=== PATIENT | female | born 1990 | race Caucasian/White ===

== ENCOUNTER → 2025-09-08 16:20 | Outpatient (CLI) | payer OTHER, SELFPAY ==
[2025-09-08 17:28] LABS: Add Manual Diff / Slide Review NO; Hematocrit 42.3 % (36-46); Hemoglobin 14.8 g/dL (12.0-16.0); Lymphocytes Absolute Auto 1400 /uL (1100-4500); Mean Corpuscular HGB Conc 35.0 % (30-36); Mean Corpuscular Hemoglobin 31.4 PG (26-34); Mean Corpuscular Volume 89.5 fL (80-100); Platelet Count 224 X10^3/uL (150-400)
[2025-09-08 18:04] LABS: Alanine Aminotransferase 22 IU/L (<35); Albumin 4.9 g/dL (3.5-5.0); Albumin Globulin Ratio 1.6 (1.0-2.8); Alkaline Phosphatase 77 U/L (38-126); Blood Urea Nitrogen 11 mg/dL (7-17); Calcium 9.8 mg/dL (8.4-10.2); Carbon Dioxide 26 mmol/L (22-32); Chloride 101 mmol/L (98-107); Estimated Glomerular Filt Rate > 60 mL/min (>60); Globulin 3.1 g/dL (1.7-4.1); Glucose 96 mg/dL (70-99); HEMOLYSIS < 15 (0-50); Potassium 4.1 mmol/L (3.4-5.1); Sodium 138 mmol/L (137-145); Total Protein 8.0 g/dL (6.3-8.2)
== END ==
PROVIDERS: PCP Family Medicine; Referring Provider Family Medicine; Visit Provider Family Medicine
DX: R00.0 Tachycardia, unspecified (principal); Z87.59 Personal history of other complications of pregnancy, childbirth and the puerperium; G56.02 Carpal tunnel syndrome, left upper limb
CPT/HCPCS: 36415; 80053; 85025

== ENCOUNTER → 2025-11-09 09:46 | Outpatient (CLI) | payer OTHER, SELFPAY | LOC: PHYS 09:46 | PROVIDERS: PCP Family Medicine; Referring Provider Family Medicine; Visit Provider Family Medicine | DX: G56.02 Carpal tunnel syndrome, left upper limb (principal) | CPT/HCPCS: 95886; 95910 ==